=== PATIENT | male | born 1970 | race Caucasian/White ===

== ENCOUNTER 2018-04-02 12:34 | Inpatient (IN) | payer SELFPAY ==
[~2018-04-02] VITALS: Ht 177.8 cm; Wt 88.0 kg
[2018-04-02 12:41] VITALS: Ht 177.8 cm; Wt 88.0 kg
[2018-04-02 13:49] LABS: PLATELET COUNT 138 x10^3mcL (130-400); RED CELL DISTRIBUTION WIDTH 17.6 % (11.5-14.5)
--- NOTE | 2018-04-02 13:51 | NUR ---
PT PRESENTED TO THE ED FOR ALCOHOL WITHDRAWAL. PT STATES HE HAS DECREASED HIS ALCOHOL INTAKE TO "A FEW SIPS EVERY 3 HOURS". PT STATES NAUSEA, VOMITING, AND HEADACHES X 5 DAYS AFTER DECREASING ALCOHOL INTAKE. PT STATES HIS LAST DRINK WAS "AN HOUR BEFORE I GOT HERE". PT STATES HE HAD THOUGHTS OF HURTING HIMSELF UPON ARRIVAL BUT DENIED HAVING A PLAN. PT CURRENTLY DENIES ANY THOUGHTS OF HURTING HIMSELF, HALLUCINATIONS, OR DELUSIONS. PT IS A&OX4, SPEAKING FULL CLEAR SENTENCES. BREATHING IS EVEN AND UNLABORED. PT IN NAD. CM AND OXYGEN MONITOR IN PLACE. DOOR LEFT OPEN TO VISUALIZE PATIENT. SAFETY MEASURES IN PLACE. BED IN LOWEST POSITION. AT BEDSIDE. WILL CONTINUE TO MONITOR.
[2018-04-02 13:56] LABS: ATYPICAL LYMPH 0 %; BAND NEUTROPHIL 0 % (0-10); SEGMENTED NEUTROPHILS 90 % (37-75)
[2018-04-02 13:57] LABS: BASOPHIL 0 % (0-2); MONOCYTE 2 % (0-7); rbc morphology (normal/abnorm) ABNORMAL (NORMAL)
[2018-04-02 14:15] LABS: ALT/SGPT 107 U/L (16-63); AST/SGOT 222 U/L (15-37); BILIRUBIN TOTAL 1.76 mg/dL (0.20-1.00); CALCIUM 7.9 mg/dL (8.5-10.1); CARBON DIOXIDE 26.1 mmol/L (21-32); CHLORIDE SERUM 99 mmol/L (98-107); CREATININE SERUM 0.7 mg/dL (0.7-1.3); GFR1 > 60 mL/min; GLUCOSE SERUM 136 mg/dL (74-106); SODIUM SERUM 136 mmol/L (136-145)
--- NOTE | 2018-04-02 14:30 | NUR ---
LUNCH TRAY PROVIDED TO PT, FOOD TRAY FINISHED.
[2018-04-02 14:34] LABS: ALBUMIN 2.9 g/dL (3.4-5.0)
[2018-04-02 14:35] LABS: POTASSIUM SERUM 3.8 mmol/L (3.5-5.1)
--- NOTE | 2018-04-02 15:38 | NUR ---
WHEN TRANSFERRING PT TO ROOM 4, A POCKET KNIFE WAS REMOVED FROM PT AND GIVEN TO TO SAFE KEEP PT'S BELONGINGS.
--- NOTE | 2018-04-02 15:40 | NUR ---
PT EXPRESS THOUGHT SO HURTING SELF AND DENIES A PLAN TO HURT SELF. TELEPSYCH IN PLACE AT BEDSIDE.
--- NOTE | 2018-04-02 15:40 | NUR ---
PTS POCKET KNIFE WAS GIVEN TO FOR HOLD. WAS INSTRUCTED NOT TO RETURN ITEM TO PATIENT. WITNESSED BY DAGOBERTO VIEIRA. VERBALIZED UNDERSTANDING SHE IS NOT TO RETURN ITEM TO PT WHILE IN THE ED.
--- NOTE | 2018-04-02 15:40 | NUR ---
WITH DR. TORREZ'S PERMISSION PT IS ALLOWED TO GO OUTSIDE TO SMOKE WITH .
[2018-04-02 15:43] LABS: ALKALINE PHOSPHATASE 983 U/L (46-116)
--- NOTE | 2018-04-02 15:45 | NUR ---
REPORT GIVEN TO KANWAL VIEIRA, ENDORSED ALL CARE.
--- NOTE | 2018-04-02 16:11 | NUR ---
PT AMBULATED TO RESTROOM, PROVIDED WITH SODA AND COFFEE.
--- NOTE | 2018-04-02 16:13 | NUR ---
PT STILL WAITING TELE/PSYCH CALL. AT BEDSIDE. SITTING IN VIEW OF THE NURSES STATION.
--- NOTE | 2018-04-02 16:28 | NUR ---
REPORT GIVEN TO DR. MERLOS FOR [facility]pto. PROVIDED PT'S STATUS, LAB HX AND VITAL SIGNS.
--- NOTE | 2018-04-02 16:29 | NUR ---
TELEPYSCH EVAL ONGOING AT BEDSIDE.
--- NOTE | 2018-04-02 17:03 | NUR ---
TELE/PSYCH COMPLETE. PT AMBULATING OUTSIDE FOR SMOKE, AND THEN AMBULATED TO THE RESTROOM.
--- NOTE | 2018-04-02 17:58 | NUR ---
KAVEH CALLED FOR NICODERM PATCH
--- NOTE | 2018-04-02 18:04 | NUR ---
PT FINISHED ENTIRE MEAL TRAY PROVIDED TO HIM.
--- NOTE | 2018-04-02 18:15 | NUR ---
PT LYING SEMI FOWLERS WATCHING TV. COOPERATIVE, IV INFUSING, PT HAS EQUAL AND UNLABORED CHEST RISE, NICOTINE PATCH IN PLACE. NO LONGER AT BEDSIDE. MEDICAL CLEARANCE BY MD MORENO.
--- NOTE | 2018-04-02 18:59 | NUR ---
PT AMBULATED TO RESTROOM WITH RN
--- NOTE | 2018-04-02 19:11 | NUR ---
PT OUTSIDE TO SMOKE WITH STAFF AT 1900
--- NOTE | 2018-04-02 19:19 | NUR ---
REPORT GIVEN TO FELIZ VIEIRA.
--- NOTE | 2018-04-02 19:23 | NUR ---
PT PROVIDED WITH A SANDWICH, PT BRACLET REMOVED AND PLACED IN BELONGINGS BAG IN RADIO ROOM.
--- NOTE | 2018-04-03 00:36 | NUR ---
PT IS RESTING IN BED
--- NOTE | 2018-04-03 06:30 | NUR ---
PT AMBULATED TO BATHROOM WITHOUT ASSISTANCE. PT WAS TAKEN OUTSIDE TO SMOKE.
--- NOTE | 2018-04-03 07:04 | NUR ---
RECEIVED REPORT FROM ISHA PIPER
--- NOTE | 2018-04-03 07:05 | NUR ---
PT RESTING AT BEDSIDE IN NAD
--- NOTE | 2018-04-03 07:16 | NUR ---
PATIENT BREATHING E/U, BILATERAL CHEST RISE. STS THAT HE IS NOT HAVING ANY SI. PATIENT HAS BEEN COOPERATIVE AND DOES FOLLOW ALL INSTRUCTIONS. STS THAT HE IS DEALING WITH ETOH WITHDRAWAL. HAS BEEN ABLE TO AMBULATE WITH STEADY GAIT. LIGHTS DIMMED, TV ON TO PROMOTE PATIENT COMFORT. PATIENT STS SATISFACTION AND STS HE IS COMFORTABLE. CURTAINS LEFT WIDE OPEN, PATIENT CAN BE SEEN FROM NURSES AT STATION.
[2018-04-03] MEDS ORDERED: ZOLOFT25 MG (07:45)
--- NOTE | 2018-04-03 08:01 | NUR ---
PT RESTING AT BEDSIDE IN NAD. BREATHING E/U, BILATERAL CHEST RISE. BED AT LOWEST POSITION. CURTAINS LEFT WIDE OPEN AND PATIENT CAN BE VISUALIZED BY NURSES AT STATION.
--- NOTE | 2018-04-03 08:10 | NUR ---
PT WAS ABLE TO AMBULATE TO RESTROOM, STEADY GAIT NOTED. PATIENT STS HE IS NOT DIZZY. ABLE TO AMBULATE BACK TO ROOM INDEPENDENTLY.
--- NOTE | 2018-04-03 08:16 | NUR ---
LAB AT BEDSIDE
[2018-04-03 09:58] LABS: CALCIUM 7.9 mg/dL (8.5-10.1); CHLORIDE SERUM 92 mmol/L (98-107); CREATININE SERUM 0.7 mg/dL (0.7-1.3); GFR1 > 60 mL/min; GLUCOSE SERUM 143 mg/dL (74-106); POTASSIUM SERUM 3.4 mmol/L (3.5-5.1); SODIUM SERUM 130 mmol/L (136-145)
[2018-04-03 10:06] LABS: PLATELET COUNT 134 x10^3mcL (130-400)
[2018-04-03 10:09] LABS: RED CELL DISTRIBUTION WIDTH 17.6 % (11.5-14.5)
[2018-04-03 10:19] LABS: AMYLASE 38 U/L (25-115); LIPASE 562 IU/L (73-393); MAGNESIUM 1.2 mg/dL (1.8-2.4); PHOSPHOROUS 2.6 mg/dL (2.5-4.9)
--- NOTE | 2018-04-03 10:22 | NUR ---
REPORT OFF TO ISHA CARMONA
--- NOTE | 2018-04-03 11:07 | NUR ---
AT 1030 - RECEIVED PATIENT FROM ER NURSE. SETTLED IN ROOM, ORIENTED TO SURROUNDINGS AND PLACED ON CARDIAC MONITORING TELE # 20. ADMITTED WITH ALCOHOL WITHDRAWAL, 5150. PATIENT IS AWAKE, ALERT AND ORIENTED X 4. SAYS THAT HE FEELS ANXIOUS AND "JITTERY". HISTORY OBTAINED FROM PATIENT. AND SON ARE ALSO AT BEDSIDE. IV INFUSING NS AT 100ML/HR. MONITOR SHOWING SINUS TACH; RATE 109. BP 150/105. ADMISSION ASSESSMENT DONE. AT 1050 - MEDICATED WITH IV ATIVAN 2 MG PER EMAR. SEEN BY DR WILKERSON, DR ARMENDARIZ, MEDICAL TEAM DOCTORS. NEW NICODERM PATCH OF 21 MG APPLIED TO TY. 1:1 SITTER IN ROOM WITH PATIENT.
[2018-04-03 11:16] VITALS: BP 150/105
[2018-04-03 11:33] LABS: CHOLESTEROL 380 mg/dL (<200); CHOLESTEROL/HDL RATIO 31.7; HDL CHOLESTEROL 12 mg/dL (40-60); TRIGLYCERIDES 1304 mg/dL (<150)
--- NOTE | 2018-04-03 11:49 | NUR ---
PATIENT APPEARS MORE RELAXED. NOW MEDICATED WITH ZOFRAN FOR NAUSEA.
[2018-04-03 13:30] VITALS: BP 124/80
[2018-04-03 14:05] LABS: BAND NEUTROPHIL 0 % (0-10); BASOPHIL 0 % (0-2); MONOCYTE 2 % (0-7); SEGMENTED NEUTROPHILS 76 % (37-75); rbc morphology (normal/abnorm) ABNORMAL (NORMAL); target cell (codocyte) 1+
[2018-04-03 14:07] LABS: PLATELET MORPHOLOGY PLATELETS NORMAL
--- NOTE | 2018-04-03 15:36 | NUR ---
AT 1315 - COMMENCED INFUSION OF BANANA BAG AT A RATE OF 250 ML/HR. AT 1430 - COLLECTED SWAB FOR LENARD NARES FOR MRSA. TAKEN TO LAB. AT 1530 -PATIENT SITTING IN CHAIR. IN ROOM. URINE HAS BEEN COLLECTED FOR UA AND UDS.
[2018-04-03 16:00] LABS: microscopic required? NO
[2018-04-03 16:19] LABS: urine erythrocyte NEGATIVE (NEGATIVE)
[2018-04-03 16:28] LABS: AMPHETAMINE QUAL UR NONE DETECTED (See below)
--- NOTE | 2018-04-03 16:48 | NUR ---
No update from contacted facilties at this time. no beds at following hospitals: [facility] Polly Ortega will endorse to assembler 1st shift to continue looking for placement.
--- NOTE | 2018-04-03 18:06 | NUR ---
AT 1635 - MEDICATED WITH IV ATIVAN PER EMAR FOR AGGITATION AND RESTLESSNESS. ALSO GIVEN 40 ME KCL FOR K+ OF 3.4. PATIENT HAS BEEN ORDERED ABDOMINAL ULTRASOUND. SPOKE WITH DR ARMENDARIZ. IT IS OK FOR TEST TO BE DONE IN EARLY AM SO PATIENT CAN EAT DINNER. SPOKE WITH RADIOLOGY - ULTRASOUND. KEEP PATIENT NPO AFTER 2200 TONIGHT AND THEY WILL DO ULTRASOUND AT 0600 TOMORROW MORNING. AT 1745 - PATIENT HAS BEEN SITTING INH CHAIR. NOW BACK IN BED. APPEARS MORE RELAXED AT THIS TIME.
[2018-04-03 18:08] VITALS: BP 98/59
--- NOTE | 2018-04-03 19:25 | NUR ---
NEW ARMBAND APPLIED.
--- NOTE | 2018-04-03 19:30 | NUR ---
AWAKE, ALERT AND ORIENTED X 4. PATIENT SITTING IN CHAIR. HAS PERIODS OF ANXIETY. IV INFUSING NS AT 100 ML/HR. MONITOR SHOWING SINUS TACH; RATE 110. AMBULATES TO BATHROOM FOR TOILET NEEDS. TOLERATING REGULAR DIET. AT BEDSIDE AND SUPPORTIVE. CARE ENDORSED TO NIGHT NURSE.
--- NOTE | 2018-04-03 20:22 | NUR ---
SHIFT REASSESSMENT DONE.PATIENT 1:1 SITTER .SUICIDAL IDEATION PER RECORD.MURPHY AWARE.BREATHING EASY.BRP,AMULATORY.NS AT 100 CC/ HOUR.IV SITE SECURED.TEL 20 ST.VOIDING PER URINAL.ALREADY GIVEN ATIVAN,RESTLESS.WILL GIVE LIBRIUM AT 2200.
--- NOTE | 2018-04-03 21:00 | NUR ---
PATIENT WAS GIVEN ATIVAN,IVP EARLIER.
--- NOTE | 2018-04-03 22:28 | NUR ---
LIBRIUM Q 8 HOURS RTC.SWALLOWS WELL.
--- NOTE | 2018-04-03 22:29 | NUR ---
WAS ASKING ANOTHER NURSE FOR ATIVAN,WAS JUST GIVEN ATIVAN.
--- NOTE | 2018-04-03 22:35 | NUR ---
PATIENT UP AND ABOUT RESTROOM,MOVING SO MUCH.NOW IV IS LEAKING/BLEEDING.WILL PUT A NEW ONE.
--- NOTE | 2018-04-03 23:16 | NUR ---
PATIENT UP IN RESTROOM,MORE BLEEDING FROM IV SITE.WILL RESTART AGAIN.THEN WE GIVE ATIVAN
--- NOTE | 2018-04-04 00:43 | NUR ---
ATIVAN GIVEN IVP JUST NOW.IV CONNECTED.IV SITE RFA 20 GUAGE INTACT AND SECURED.
--- NOTE | 2018-04-04 02:05 | NUR ---
PATIENT GOT UP,CANNOT CONTROL BY SITTER,WET HIMSELF,KEEP CLEAN AND DRY.NEW UNDERWEAR GIVEN,TELE PUT BACK AGAIN,MOVING TOO MUCH,SLEEPING ON HIS STOMACH AND TELE ALWAYS OFF,BUT WILL NOT LISTEN TO STAY ON HIS BACK.URINAL AT BEDSIDE,REMINDED HE DO NOT HAVE TO GET UP TO RESTROOM,JUST USE URINAL,SITTER WILL ASSIST.
--- NOTE | 2018-04-04 02:21 | NUR ---
Still no bed vacancies at the following psychiatric facilities. [facility], spoke with Iwona. [facility], spoke with Cordelia. [facility], spoke with Trista. [facility], spoke with Radha. [facility], spoke with Ghada. [facility], spoke with Kanika. Will continue to look for bed vacancies and will endorse to AM shift.
--- NOTE | 2018-04-04 02:31 | NUR ---
BEING WATCH FOR WITHDRAWAL/SAFETY.
--- NOTE | 2018-04-04 03:20 | NUR ---
JUST GAVE ATIVAN IVP,PATIENT VERY RESTLESS,GOT UP IN THE HALLWAY,SITTER CANNOT CONTROL HIM,MADE COMFORTABLE IN BED,ASSIST TO URINAL,USED AT BEDSIDE.
--- NOTE | 2018-04-04 03:39 | NUR ---
PATIENT IS UP IN HALLWAY AGAIN,EVEN I JUST GAVE ATIVAN.IV DISCONNECTED FOR NOW.
--- NOTE | 2018-04-04 04:40 | NUR ---
QUIET AT THIS TIME,SLEEPING.
[2018-04-04 04:57] VITALS: BP 113/74
--- NOTE | 2018-04-04 06:18 | NUR ---
AT BEDSIDE,VERY SUPPORTIVE OF CARE.MADE AWARE OF WHAT PATIENT DID ALL NIGHT.I AND O MEASURED.WILL ENDORSE TO NEXT SHIFT.
[2018-04-04 06:44] LABS: BILIRUBIN DIRECT 1.38 mg/dL (0.0-0.2); CARBON DIOXIDE 27.8 mmol/L (21-32); CHLORIDE SERUM 99 mmol/L (98-107); CREATININE SERUM 0.6 mg/dL (0.7-1.3); GFR1 > 60 mL/min; GLUCOSE SERUM 125 mg/dL (74-106); POTASSIUM SERUM 3.5 mmol/L (3.5-5.1); SODIUM SERUM 135 mmol/L (136-145)
[2018-04-04 07:10] LABS: PLATELET COUNT 122 x10^3mcL (130-400); RED CELL DISTRIBUTION WIDTH 18.6 % (11.5-14.5)
--- NOTE | 2018-04-04 07:15 | NUR ---
RECEIVED PATIENT FROM DECATIZER NURSE. PATIENT IS AWAKE,ALERT AND ORIENTED. SEIZURE PRECAUTIONS IN PLACE. TELE#20, SR, HR 82, DENIES CHEST PAIN AND PALPITATIONS. ON ROOM AIR, BREATHING EVEN AND UNLABORED. ULTRASOUND AT BEDSIDE TO COMPLETE ABD US. IV NOTED TO RFA, IVF INFUSING WELL ORDERED, NO S/S REDNESS OR EDEMA. SITTER AT BEDSIDE FOR SAFETY, PATIENT ADMITTED FOR 5150 SI. FAMILY AT BEDSIDE. WILL CONTINUE TO MONITOR.
[2018-04-04 08:55] VITALS: BP 127/89
--- NOTE | 2018-04-04 09:02 | NUR ---
DR ARMENDARIZ NOTIFIED OF PATIENTS LIPID PANEL RESULTS. WILL FOLLOW UP.
--- NOTE | 2018-04-04 09:03 | NUR ---
DR ARMENDARIZ NOTIFIED VIA [employer] OF PATIENTS C/O OF NICODERM PATCH 21MG TOO STRONG AND CAUSING NAUSEA. PATIENS REQUESTING 7MG PATCH. WILL FOLLOW UP.
--- NOTE | 2018-04-04 11:13 | NUR ---
DR ARMENDARIZ PAGED REGARDING NICOTINE PATCH. PENDING CALL BACK.
[2018-04-04 11:20] LABS: BAND NEUTROPHIL 0 % (0-10); BASOPHIL 0 % (0-2); MONOCYTE 2 % (0-7); SEGMENTED NEUTROPHILS 78 % (37-75)
[2018-04-04 11:21] LABS: rbc morphology (normal/abnorm) ABNORMAL (NORMAL)
[2018-04-04 11:22] LABS: target cell (codocyte) 1+
[2018-04-04 12:29] VITALS: BP 124/89
--- NOTE | 2018-04-04 14:06 | NUR ---
RESTLESS,AGITATED MEDICATED WITH ATIVAN IVP PER ORDER.
--- NOTE | 2018-04-04 14:59 | NUR ---
NO update from contacted hospitals today No beds at the following facilities: [facility] will continue to search for placement and endorse to mini shifter to continue looking as well
[2018-04-04 15:12] VITALS: BP 124/89
[2018-04-04 18:02] VITALS: BP 123/90
--- NOTE | 2018-04-04 19:03 | NUR ---
PATIENT RESTING IN BED AT THIS TIME WITH BOTH EYES CLOSED, AROUSABLE. SITTER AT BEDSIDE FOR SAFETY. PATIENT WAITING FOR PSYCH CONSULT WITH DR DOSHI. PATIENT CARE ENDORSED TO MANAGER CULINARY NURSE.
--- NOTE | 2018-04-04 19:30 | NUR ---
REC'D REPORT FROM KEITH RN TO ASSUME CARE. PT SEEN SITTING UP IN CHAIR IN ROOM, SEEN LYING IN BED. PT IS A/O X4, SPEECH CLEAR AND APPROPRIATE. PERRLA NOTED. ABLE TO MAKE NEEDS KNOWN. NO ACUTE DISTRESS NOTED. PT ON 5150 HOLD WITH SITTER AT BEDSIDE. PT ASKING FOR ATIVAN IVP AT THIS TIME, WILL MEDICATE PER MD ORDER. DENIES ANY SOB, RESPS E/U ON ROOM AIR. LUNG SOUNDS CTA. FARMWORKER VEGETABLE IN PLACE SHOWING ST. ABD SOFT, NONTENDER TO TOUCH. BOWEL SOUNDS ACTIVE. SKIN WARM DRY TO TOUCH. IV TO RFA INTACT AND PATENT, NS INFUSING @ 100ML/HR. NO S/SX OF INFILTRATION NOTED. VOIDS FREELY WITH BRP. ABLE TO AMBULATE WITH NO LIMITATIONS. SEIZURE PRECAUTIONS IN PLACE FOR ALCOHOL WITHDRAWAL. PT DENIES ANY SUICIDAL IDEATION. ALL NEEDS MET AT THIS TIME. WILL CONTINUE TO MONITOR.
[2018-04-04 20:04] VITALS: BP 130/92
--- NOTE | 2018-04-04 20:55 | NUR ---
DR DOSHI SEEN AT BEDSIDE.
--- NOTE | 2018-04-04 21:12 | NUR ---
DR DOSHI SEEN AND EXAMINED PT, DR DOSHI STATES PT IS CLEARED AND DOES NOT NEED [address] ZALDIVAR AND MADE AWARE.
--- NOTE | 2018-04-04 21:40 | NUR ---
PTS YELLING AT PT UPSET THAT PSYCH DIDN'T TALK TO HER. EXPLAINED PT WAS SLEEPING IN BED SNORING WHEN PSYCH WALKED IN ROOM. EXPLAINED TO DR DOSHI EXAMINED PT AND PT WAS CLEARED FROM 5150. PT STILL UPSET CURSING AND YELLING AT PT STATING THAT IT'S HIS FAULT HER LIFE IS FED UP AND THAT SHE HASN'T SLEPT FOR 25 YEARS BECAUSE OF PT. CHARGE NURSE MADE AWARE AND SUGGESTED TO TELL PTS TO GO HOME TO SLEEP AND COME BACK IN AM TO LEAD MILITARY ANALYST PT. PTS TOLD TO GO HOME AND SLEEP, PTS STARTED TO YELL AND STATED I DONT CARE ANYMORE. PTS STARTED YELLING AT PT AGAIN STATING I DIDN'T PUT THE ALCOHOL TO YOUR FELLE MOUTH. DR ZALDIVAR CALLED AND MADE AWARE.
--- NOTE | 2018-04-04 21:46 | NUR ---
DR ZALDIVAR AT BEDSIDE TO ASSESS PT, UPDATED ON STATUS, DR ZALDIVAR STATES PT IS MEDICALLY CLEARED. CHARGE NURSE AT BEDSIDE. PTS STATES IF I TAKE HIM HOME AND I FISADORA IM GONNA FRITZ THE F OUT OF YOU. SECURITY CALLED AT THIS TIME.
--- NOTE | 2018-04-04 22:00 | NUR ---
SECURITY ESCORTED PTS TO LOBBY TO WAIT FOR PT TO BE DISCHARGED TO TAKE HOME.
--- NOTE | 2018-04-04 22:15 | NUR ---
DISCHARGE INSTRUCTIONS PROVIDED. INSTRUCTED TO F/U WITH PCP CRISTINA AND TO ABSTAIN FROM ALCOHOL. INSTRUCTED TO COME BACK TO ER FOR ANY WORSENING SYMPTOMS. VITAL SIGNS UPON DISCHARGE 133/90, HR 105, TEMP 99.0, O2 SAT 98% ON ROOM. NO SOB NOTED, RESPS E/U. DENIES ANY PAIN OR DISCOMFORT. NO ALOC NOTED. SKIN INTACT. PT VERBALIZED UNDERSTANDING OF ALL DISCHARGE INSTRUCTIONS. ALL QUESTIONS AND CONCERNS ADDRESSED. PT WHEELCHAIRED OUT TO LOBBY TO SAFELY. NO INCIDENTS OCCURED.
== END 2018-04-04 22:37 | disposition home or self-care (01) | DRG 92 ==
LOC: ED 12:34 → DU 04-03 07:35
PROVIDERS: Emergency Medicine; ADMIT Internal Medicine
DX: G92 Toxic encephalopathy (principal); E87.1 Hypo-osmolality and hyponatremia; F10.10 Alcohol abuse, uncomplicated; Y90.0 Blood alcohol level of less than 20 mg/100 ml; F17.200 Nicotine dependence, unspecified, uncomplicated; E87.6 Hypokalemia; E83.42 Hypomagnesemia; E83.51 Hypocalcemia; E78.5 Hyperlipidemia, unspecified; D64.9 Anemia, unspecified; F32.9 Major depressive disorder, single episode, unspecified; R74.0 Nonspecific elevation of levels of transaminase and lactic acid dehydrogenase [LDH]
CPT/HCPCS: 83880; G0480; J2060; J2405; J3490; J7030; Q0092; Q0162

== ENCOUNTER 2018-09-07 11:15 | Emergency (ER) | payer SELFPAY ==
[~2018-09-07] VITALS: Ht 175.3 cm; Wt 86.2 kg
[~2018-09-07 11:15] MED LIST: ZOLOFT25 MG
[2018-09-07 11:21] VITALS: Ht 175.3 cm; Wt 86.2 kg
[2018-09-07 12:31] VITALS: BP 168/78
== END 2018-09-07 12:31 | disposition home or self-care (01) ==
LOC: ED 11:15
DX: F41.9 Anxiety disorder, unspecified (principal); R07.89 Other chest pain; F10.129 Alcohol abuse with intoxication, unspecified; F17.210 Nicotine dependence, cigarettes, uncomplicated
CPT/HCPCS: 99406; Q0092

== ENCOUNTER 2018-10-20 01:28 | Emergency (ER) | payer OTHER ==
[~2018-10-20] VITALS: Ht 175.3 cm; Wt 81.6 kg
[2018-10-20 01:35] VITALS: Ht 175.3 cm; Wt 81.6 kg
[2018-10-20 02:47] VITALS: BP 137/88
== END 2018-10-20 02:47 | disposition other institution (70) ==
LOC: ED 01:28
DX: Z02.89 Encounter for other administrative examinations (principal)

== ENCOUNTER 2018-11-14 21:22 | Emergency (ER) | payer OTHER ==
[~2018-11-14] VITALS: Ht 175.3 cm; Wt 89.4 kg
[2018-11-14 21:24] VITALS: BP 130/90; Ht 175.3 cm; Wt 89.4 kg
== END 2018-11-14 22:02 | disposition other institution (70) ==
LOC: ED 21:22
DX: Z02.89 Encounter for other administrative examinations (principal)

== ENCOUNTER 2018-11-17 00:31 | Inpatient (IN) | payer MEDICAID ==
[~2018-11-17] VITALS: Ht 175.3 cm; Wt 89.4 kg
--- NOTE | 2018-11-17 00:35 | NUR ---
PT BIB [facility]. PT IS AWAKE AND ALERT AT THIS TIME. PT REPORTS HE WAS SLEEPING ON THE COUCH AND WOKE UP TO EMS. PER MEDIC REPORT, PT FAMILY ACTIVATED 911 AFTER THE SON WITNESSED STIFFENING OF THE ARMS AND OTHER ACTIVITY DESCRIBED "CONVULSION" LIKE. PT IS ALERT AND ORIENTED BUT DOES NOT REMEMBER THE EVENT DESCRIBED BY FAMILY. PUPILS ARE VINAY. SMEAR OF BLOOD NOTED ON THE LEFT CHEEK OUTSIDE THE CORNER OF THE MOUTH, PT CONNECTED TO FULL MONITORS ON ED [place] AND EKG INITIATED BY EMT TAMMY. PT IS NOTED TO BE IN SINUS TACH ON THE MONITOR. PT REPORTS NO NX OF SEIZURES AND DEMONSTRATES NO TREMORS AT THIS TIME. PT EYES ARE NOTED TO BE BLOOD SHOT IN APPEARANCE. PT AWAITING MSE IN ED BED 9. SUCTION AND O2 IN FLAKO. IV ACCESS ESTABLISHED EN ROUTE. SEIZURE PADS TO BE APPLIED.
[2018-11-17 00:41] VITALS: Ht 175.3 cm; Wt 89.4 kg
--- NOTE | 2018-11-17 00:45 | NUR ---
AT BEDSIDE AT THIS TIME.
--- NOTE | 2018-11-17 01:05 | NUR ---
PT MEDICATED PER ORDER. PT VERBALIZED UNDERSTANDING OF MEDICATION TEACHING. SEE EMAR FOR DETAILS.
[2018-11-17 01:27] LABS: PLATELET COUNT 188 x10^3mcL (130-400)
[2018-11-17 01:33] LABS: RED CELL DISTRIBUTION WIDTH 15.6 % (11.5-14.5)
[2018-11-17 01:43] LABS: CALCIUM 8.3 mg/dL (8.5-10.1); CARBON DIOXIDE 24.1 mmol/L (21-32); CHLORIDE SERUM 95 mmol/L (98-107); CREATININE SERUM 0.5 mg/dL (0.7-1.3); GFR1 > 60 mL/min; GLUCOSE SERUM 160 mg/dL (74-106); POTASSIUM SERUM 3.1 mmol/L (3.5-5.1); SODIUM SERUM 133 mmol/L (136-145)
[2018-11-17 01:48] LABS: ALBUMIN 3.5 g/dL (3.4-5.0); ALKALINE PHOSPHATASE 132 U/L (46-116); ALT/SGPT 84 U/L (16-63); AST/SGOT 76 U/L (15-37); BILIRUBIN TOTAL 0.96 mg/dL (0.20-1.00); TOTAL PROTEIN, SERUM 7.4 g/dL (6.4-8.2)
[2018-11-17 02:05] LABS: BAND NEUTROPHIL 0 % (0-10); BASOPHIL 0 % (0-2); MONOCYTE 6 % (0-7); SEGMENTED NEUTROPHILS 81 % (37-75)
[2018-11-17 02:06] LABS: PLATELET MORPHOLOGY PLATELETS NORMAL; rbc morphology (normal/abnorm) NORMAL (NORMAL)
--- NOTE | 2018-11-17 02:22 | NUR ---
PT MEDICATED PER ORDER. PT VERBALIZED UNDERSTANDING OF MEDICATION TEACHING. SEE EMAR FOR DETAILS.
--- NOTE | 2018-11-17 02:39 | NUR ---
PT LAYING ON GURNEY IN POSITION OF COMFORT. NO S/S OF DISTRESS. RESP E/U. AT BEDSIDE. COMFORT MEASURES IMPLEMENTED. WILL CONTINUE TO MONITOR.
--- NOTE | 2018-11-17 02:48 | NUR ---
REPORT GIVEN TO ISHA MEYER TO ASSUME CARE OF PT.
--- NOTE | 2018-11-17 03:05 | NUR ---
RECEIVED PT FROM ER ACCOMPANIED BY ER NURSE EMILY AND EMT TAMMY. PT AMBULATED WITH NURSE TO BED 242 B WITH UNSTEADY GAIT NOTED, ASSISTED PT TO BED WITH ASSISTANCE TO BED. PT ATTACHED TO TELE MONITOR #16. PT PLACED IN BED WITH NO COMPLICATIONS. RECEIVED PT AOX4 ABLE TO RESPOND TO COMMANDS, MAKE NEEDS KNOWN. GCS=15. PUPILS 4MM BRISK RESPONSE TO LIGHT B/L, PERRLA. SPEECH CLEAR. NO FACIAL DROOP.TRACHEA MIDLINE. BILATERAL EYES HAVE REDNESS, NO DRAINAGE NOTED, DRY GREENISH CRUST NOTED NEAR EYES. LUNG SOUNDS CTAB, CHEST RISE/FALL SYMMETRIC, E/U BREATHING, NO ACUTE RESP DISTRESS, DENIES SOB. ON ROOM AIR. NO COUGH.S1/S2 SOUNDS. PT DENIES CHEST PAIN, NO S/S OF CHEST PAIN.SKIN COLOR CONSISTENT WITH ETHNICITY, CAP REFILL <3 SEC, PULSES MODERATE X4 EXTREMITIES. NO EDEMA.GEN WEAKNESS REPORTED. NO CONTRACTURES/DEFORMITIES, PT ABLE TO TURN/REPOSITION SELF Q2H. NO JOINT SWELLING/TENDERNESS. GAIT UNSTEADY. ACTIVE BOWEL SOUNDS X4 QUADRANTS, ABD SOFT/ROUND. NO BM AT THIS TIME. REPORTS BM YESTERDAY BROWN SOFT.PT REPORTS BEING ABLE TO VOID FREELY. NO PENILE EDEMA OR DISCHARGE NOTED.PT CALM/COOPERATIVE WITH CARE AT THIS TIME. ETOH ABUSE, WITHDRAWAL AT THIS TIME, LAST DRINK WAS REPORTED 3 DAYS AGO. NO S/S OF N/V. BED AT LOWEST SETTING, CALL LIGHT WITHIN REACH, HOB ELEVATED 30 DEGREES. TEACHING PROVIDED. WILL CONT TO MONITOR.
[2018-11-17 03:13] VITALS: BP 117/75
[2018-11-17 03:13] LABS: UA SPECIFIC GRAVITY 1.015 (1.005-1.035); microscopic required? YES; urine erythrocyte 1+ (NEGATIVE)
--- NOTE | 2018-11-17 03:16 | NUR ---
PT TRANSFERRED TO TELE FLOOR ACCOMPANIED BY NURSE AND EMT. NO S/S OF DISTRESS. RESP E/U. PT CONNECTED TO MONITOR DURING TRANSFER. RN AT BEDSIDE TO ASSUME CARE OF PT. RN AWARE OF MEDICATION STILL INFUSING.
[2018-11-17 03:42] VITALS: BP 117/75
--- NOTE | 2018-11-17 03:52 | NUR ---
PT REPORTS BEING AGITATED/RESTLESS AT THIS TIME. PT MEDICATED WITH ATIVAN IVP PER EMAR.
--- NOTE | 2018-11-17 05:35 | NUR ---
PT SLEEPING BUT EASILY AROUSABLE TO VERBAL STIMULI, IN NO ACUTE DSITRESS, DENIES SOB, DENIES PAIN AT THIS TIME. SEIZURE PREACUATIONS INTACT WITH SEIZURE PADS TO RAILS. RIGHT WRIST IV PORT PATENT, NO S/S OF INFILTRATION, DRESSING CDI, INFUSING NS @ 100 ML/HR. BED AT LOWEST SETTING, CALL LIGHT WITHIN [facility], HOB ELEVATED 30 DEGREES, WILL ENDORSE CARE TO ONCOMING RN.
--- NOTE | 2018-11-17 05:51 | NUR ---
FOUND PT IV TO RW OUT AND BLOOD ON PT'S SHEETS. PT REPORTS "I TURNED AROUND AND IT CAME OUT". PT IV D/C'D WITH ANGIOCATH INTACT. NEW IV INITIATED TO RFA 18 G, PORT PATENT, FLUSHED WITH 10 ML OF NS, NO S/S OF INFILTRATION, DRESSING CDI, ATTACHED TO NORMAL SALINE GTT @ 100 ML/HR. NEW SHEETS PROVIDED TO PATIENT.
[2018-11-17 07:04] LABS: BASOPHIL % 0.2 % (0-2); PLATELET COUNT 169 x10^3mcL (130-400)
[2018-11-17 07:20] LABS: RED CELL DISTRIBUTION WIDTH 16.2 % (11.5-14.5)
--- NOTE | 2018-11-17 07:25 | NUR ---
GAVE REPORT TO ISHA RICHTER. UPDATES GIVEN, QUESTIONS ANSWERED, ENODRSED CARE.
--- NOTE | 2018-11-17 07:30 | NUR ---
RECEIVED PT'S REPORT FROM LEAVING NURSE. PT REST ON BED, EASILY AROUSED VIA VERBAL STIMULI. SZ PRECAUTION IN PLACE. PT BREATHING ON RA, EVEN, UNLABORED. PT IS NPO AT THIS TIME. IV SITE PATENT, INTACT, IVF NS INFUSING AT 100ML/HR.
[2018-11-17 07:46] LABS: AMPHETAMINE QUAL UR NONE DETECTED (See below)
[2018-11-17 07:50] LABS: CALCIUM 8.4 mg/dL (8.5-10.1); CARBON DIOXIDE 22.2 mmol/L (21-32); CHLORIDE SERUM 99 mmol/L (98-107); CREATININE SERUM 0.5 mg/dL (0.7-1.3); GFR1 > 60 mL/min; GLUCOSE SERUM 78 mg/dL (74-106); MAGNESIUM 1.9 mg/dL (1.8-2.4); PHOSPHOROUS 3.3 mg/dL (2.5-4.9); POTASSIUM SERUM 3.5 mmol/L (3.5-5.1); SODIUM SERUM 134 mmol/L (136-145)
[2018-11-17 08:38] VITALS: BP 127/56
--- NOTE | 2018-11-17 10:41 | NUR ---
PT REPORTED GETTING ANXIOUS, ATIVAN GIVEN PER PRN ORDER.
--- NOTE | 2018-11-17 13:20 | NUR ---
PT'S AT BEDSIDE. PT COMPLAIN OF ANXIETY AND PAIN ON RIBS 2/2 FELL. ATIVAN AND NORCO GIVEN PER PRN ORDER.
[2018-11-17 16:43] VITALS: BP 110/78
--- NOTE | 2018-11-17 16:50 | NUR ---
Discount pharmacy card and list to low cost medical clinics given to patient by Latesha.
--- NOTE | 2018-11-17 19:39 | NUR ---
PT'S RESTING ON BED AFTER DINNED, REMAINING CALM AND COOPERATE WITH CARE. ENDORSED PT'S CARE TO RECEIVING NURSE.
[2018-11-17 21:04] VITALS: BP 102/70
--- NOTE | 2018-11-17 21:52 | NUR ---
PATIENT GIVEN NORCO PO PER EMAR FOR REPORT OF 7/10 PAIN TO HIS RIBS. NO SOB ON RA, CHEST EXPANSION SYMMETRICAL.
[2018-11-18 05:39] VITALS: BP 117/58
--- NOTE | 2018-11-18 06:27 | NUR ---
PT. AWAKE. RECEIVED AM MEDS. NO SEIZURE ACTIVITY NOTED THROUGHOUT NOGHT. NO TREMORS NOTED. IVF INFUSING WELL, SITE INTACT. WILL ENDORSE PT CARE TO INCOMING NURSE.
[2018-11-18 06:36] LABS: BASOPHIL % 0.3 % (0-2); PLATELET COUNT 169 x10^3mcL (130-400)
[2018-11-18 06:45] LABS: ALKALINE PHOSPHATASE 111 U/L (46-116); ALT/SGPT 65 U/L (16-63); AST/SGOT 54 U/L (15-37); BILIRUBIN TOTAL 0.7 mg/dL (0.20-1.00); CALCIUM 8.4 mg/dL (8.5-10.1); CHLORIDE SERUM 103 mmol/L (98-107); CREATININE SERUM 0.7 mg/dL (0.7-1.3); GFR1 > 60 mL/min; GLUCOSE SERUM 72 mg/dL (74-106); POTASSIUM SERUM 3.5 mmol/L (3.5-5.1); SODIUM SERUM 140 mmol/L (136-145); TOTAL PROTEIN, SERUM 6.7 g/dL (6.4-8.2)
[2018-11-18 06:55] LABS: ALBUMIN 3.1 g/dL (3.4-5.0)
[2018-11-18 07:02] LABS: RED CELL DISTRIBUTION WIDTH 16.4 % (11.5-14.5)
--- NOTE | 2018-11-18 07:30 | NUR ---
AAO X4.DENIES ANY PAIN/DISCOMFORT.LUNGS CLEAR.ON SINUS TACH ON THE MONITOR.ID=[id number].ABDOMEN SOFT NON-TENDER. SIDE RAILS PADDED FOR SEIZURE PRECAUTION.HX OF ETOH ABUSE.CALL LIGHT WITHIN REACH.INSTRUCTED TO CALL FOR ANY PAIN/DISCOMFORT.WILL CONTINUE TO MONITOR PT.
[2018-11-18 09:12] VITALS: BP 125/65
[2018-11-18 13:06] VITALS: BP 98/63
--- NOTE | 2018-11-18 15:09 | NUR ---
PT STARTED TO GET RESTLESS.GAVE ATIVAN 1 MG IVP ORDERED PRN FOR AGITATION/ALCOHOL WITHDRAWAL PROTOCOL.WILL CONTINUE TO MONITOR.
--- NOTE | 2018-11-18 15:56 | NUR ---
PT TOOK A SHOWER ORDERED.TOLORATED IT WELL.ALSO GOT AN ORDER TO D/C TELE. PT COMFORTABLY SITTING ON THE CHAIR.
[2018-11-18 16:53] VITALS: BP 98/63
--- NOTE | 2018-11-18 18:22 | NUR ---
NO SIGNIFICANT CHANGE NOTED.WILL ENDORSE TO NEXT SHIFT.
--- NOTE | 2018-11-18 19:41 | NUR ---
PT. AWAKE, ALERT, ORIENTED X4. DENIES HEADACHE OR DIZZINESS. SITTING UP AT BEDSIDE WITH SPOUSE AT BEDSIDE. BREATH SOUNDS CLEAR THROUGHOUT LUNG GUAN, RESP. EVEN, UNLABORED. NO SOB NOTED.PT. ON RA. NO EDEMA NOTED TO EXTREMITIES. ABD. SOFT AND ROUND, BOWEL SOUNDS ACTIVE. IVF INFUSING WELL, SITE WNL. CALL LIGHT WITHIN REACH.
--- NOTE | 2018-11-18 20:05 | NUR ---
PT. C/O ABD. PAIN 07/21. PRN NORCO GIVEN ORDERED. WILL MONITOR.
[2018-11-18 21:13] VITALS: BP 118/82
--- NOTE | 2018-11-19 00:20 | NUR ---
PT. AWAKE, SITTING UP IN CHAIR AT BEDSIDE. PT. REQUESTED PAIN MEDICATION EARLIER BUT MEDICATION WAS NOT DUE YET. PT. ASKED IF HE COULD BE AWAKENED IF HE FELL ASLEEP TO RECEIVE MEDICATION FOR PAIN. PT. MADE AWARE THAT HE WOULD NOT BE AWAKENED TO RECEIVE PAIN MEDICATION BUT COULD RECEIVE MEDICATION ONCE HE WOKE AND NEEDED PAIN MEDICATION. PT. STAYED UP IN HIS CHAIR AT BEDSIDE UNTIL MEDICATION WAS DUE. PT. ANXIOUS AND STATED THAT HE IS GOING THROUGH A LOT. STATING THAT HE NEEDED MORE MEDICATION. PRN ATIVAN WAS GIVEN ALSO. PT. WENT BACK TO BED AT THIS POINT, STATED THAT HE WILL TRY TO GET SOME SLEEP. CALL LIGHT PLACED WITHIN REACH. WILL MONITOR.
[2018-11-19 04:51] VITALS: BP 111/76
--- NOTE | 2018-11-19 07:15 | NUR ---
RECEIVED PT FROM FOUNTAIN SERVER NURSE. PT RESTING IN BED, AOX4, RESP E/U ON RA. CALM AT THIS TIME, DENIES HEADACHE, NAUSEA OR PAIN. IV TO RFA OUT AT THIS TIME, CATH INTACT, ACCESS SITE W/ NO BLEEDING, ERYTHEMA OR EDEMA. BED IN LOWEST POSITION AND CALL LIGHT WITHIN REACH. WILL CONTINUE TO MONITOR AND FOLLOW UP WITH IV INSERTION.
--- NOTE | 2018-11-19 07:29 | NUR ---
PT. DOZING. ROUNDS MADE FOR REPORT. IV CATH NOTED TO BE OUT. CATH INTACT. SITE NOT BLEEDING AT THIS TIME. INCOMING URSE MADE AWARE. PT. CARE ENDOSRE.
[2018-11-19 08:49] VITALS: BP 101/66
--- NOTE | 2018-11-19 12:31 | NUR ---
PT SITTING UPRIGHT IN BED, AXO4, RESP E/U ON RA. DENIES HEADACHE OR NAUSEA, STATED HE FELT ANXIOUS AND WAS REQUESTING FOR PRN ATIVAN. INFORMED PT IT IS CLOSE FOR SCHEDULED TIME FOR LIBRIUM AND IF HE WOULD BE ABLE TO WAIT FOR MEDICATION. PT CALM AND COMPLIANT W/ INSTRUCTIONS. BED IN LOWEST POSITION AND CALL LIGHT WITHIN REACH. AT BEDSIDE. WILL CONTINUE TO MONITOR.
[2018-11-19] MEDS ORDERED: NIC21 TD (14:12)
[2018-11-19] MEDS ORDERED: LIB25 PO (14:13)
[2018-11-19] MEDS ORDERED: FOL1 PO (14:14)
[2018-11-19] MEDS ORDERED: THERA TABLET400 MCG PO (14:14)
[2018-11-19] MEDS ORDERED: THI100 PO (14:14)
[2018-11-19 14:28] VITALS: BP 101/66
--- NOTE | 2018-11-19 14:53 | NUR ---
DISCHARGE DONE. REVIEWED VISIT SUMMARY, EDUCATIONAL PACKET, FOLLOW UP INSTRUCTIONS AND NEW RX MEDS W/ PT. PT AOX4, RESP E/U ON RA, VS STABLE, DENIES PAIN. IV TO LFA REMOVED, CATH INTACT, GAUZE DRESSING APPLIED. PT AMBULATORY TO DISCHARGE OFFICE W/ NO ACUTE INCIDENCE.
== END 2018-11-19 14:53 | disposition home or self-care (01) | DRG 92 ==
LOC: ED 00:31 → DU 02:13 → MU 11-18 15:44
PROVIDERS: Emergency Medicine; ADMIT Internal Medicine
DX: G92 Toxic encephalopathy (principal); E87.1 Hypo-osmolality and hyponatremia; E87.2 Acidosis; F10.239 Alcohol dependence with withdrawal, unspecified; Y90.9 Presence of alcohol in blood, level not specified; E87.6 Hypokalemia; E87.8 Other disorders of electrolyte and fluid balance, not elsewhere classified; E83.51 Hypocalcemia; F10.229 Alcohol dependence with intoxication, unspecified; Z79.899 Other long term (current) drug therapy
CPT/HCPCS: 97116-GP; G0378; G0480; J2060; J3480; J7030; J7040; Q0092

== ENCOUNTER 2019-01-16 12:59 | Emergency (ER) | payer OTHER ==
[~2019-01-16] VITALS: Ht 175.3 cm; Wt 90.7 kg
[~2019-01-16 12:59] MED LIST changes: +FOL1 PO; +LIB25 PO; +NIC21 TD; +THERA TABLET400 MCG PO; +THI100 PO
[2019-01-16 13:01] VITALS: BP 134/95; Ht 175.3 cm; Wt 90.7 kg
== END 2019-01-16 13:37 | disposition other institution (70) ==
LOC: ED 12:59
DX: Z02.89 Encounter for other administrative examinations (principal)

== ENCOUNTER 2019-01-20 13:05 | Emergency (ER) | payer MEDICAID ==
[~2019-01-20] VITALS: Ht 175.3 cm; Wt 86.6 kg
[2019-01-20 13:27] VITALS: Ht 175.3 cm; Wt 86.6 kg
[2019-01-20 16:18] LABS: BASOPHIL % 0.3 % (0-2); PLATELET COUNT 162 x10^3mcL (130-400)
[2019-01-20 16:19] LABS: RED CELL DISTRIBUTION WIDTH 14.9 % (11.5-14.5)
[2019-01-20 16:28] LABS: CALCIUM 8.9 mg/dL (8.5-10.1); CARBON DIOXIDE 28.3 mmol/L (21-32); CHLORIDE SERUM 101 mmol/L (98-107); CREATININE SERUM 0.8 mg/dL (0.7-1.3); GFR1 > 60 mL/min; GLUCOSE SERUM 85 mg/dL (74-106); POTASSIUM SERUM 4.2 mmol/L (3.5-5.1); SODIUM SERUM 140 mmol/L (136-145)
[2019-01-20 16:32] LABS: ALBUMIN 3.8 g/dL (3.4-5.0); ALKALINE PHOSPHATASE 126 U/L (46-116); ALT/SGPT 55 U/L (16-63); AST/SGOT 48 U/L (15-37); BILIRUBIN TOTAL 0.9 mg/dL (0.20-1.00); TOTAL PROTEIN, SERUM 7.7 g/dL (6.4-8.2)
[2019-01-20 17:31] VITALS: BP 125/95
== END 2019-01-20 17:31 | disposition home or self-care (01) ==
LOC: ED 13:05
PROVIDERS: Emergency Medicine
DX: S00.12XA Contusion of left eyelid and periocular area, initial encounter (principal); F10.239 Alcohol dependence with withdrawal, unspecified; F17.200 Nicotine dependence, unspecified, uncomplicated; Y90.0 Blood alcohol level of less than 20 mg/100 ml; Y04.0XXA Assault by unarmed brawl or fight, initial encounter; Y93.89 Activity, other specified; Y92.89 Other specified places as the place of occurrence of the external cause; Y99.8 Other external cause status
CPT/HCPCS: 36415; 99406; G0480; J3411

== ENCOUNTER 2019-03-28 15:24 | Emergency (ER) | payer OTHER ==
[~2019-03-28] VITALS: Ht 175.3 cm; Wt 90.7 kg
[2019-03-28 15:31] VITALS: Ht 175.3 cm; Wt 90.7 kg
[2019-03-28 17:54] VITALS: BP 158/98
== END 2019-03-28 17:54 | disposition home or self-care (01) ==
LOC: ED 15:24
DX: F10.239 Alcohol dependence with withdrawal, unspecified (principal); F10.229 Alcohol dependence with intoxication, unspecified; Y90.9 Presence of alcohol in blood, level not specified
CPT/HCPCS: J2060

== ENCOUNTER 2019-03-29 16:39 | Inpatient (IN) | payer OTHER ==
[~2019-03-29] VITALS: Ht 182.9 cm; Wt 92.0 kg
--- NOTE | 2019-03-29 17:36 | NUR ---
PT TO ED FOR EVAL OF SHAKINESS. PT STATES HE IS AN ALCOHOLIC AND STOPPED DRINKING 4 DAYS AGO. STATED TO DOCTOR HE STOPPED DRINKING THRUSDAY AT WIFES REQUEST. AFTER DOCTOR LEFT ROOM PT STATED "I DID HAVE TWO CLAMATO BEERS TODAY BUT I DON'T CONSIDER THAT ALCOHOL" PT IS AWAKE, ALERT, AND ORIENTED X 4. + TREMORS TO UPPER EXTREMITIES. DENIES ANY VISUAL OR AUDIO HALLUCINATIONS. MSE COMPLETED BY DR. GARVEY PT IV STARTED TO R AC AND MEDICATED ORDERED. PT ON CM. SIDERAILS UP X 2. CONTINUE TO MONITOR.
[2019-03-29 18:04] LABS: BASOPHIL % 0.3 % (0-2); PLATELET COUNT 210 x10^3mcL (130-400)
[2019-03-29 18:07] LABS: RED CELL DISTRIBUTION WIDTH 15.4 % (11.5-14.5)
[2019-03-29 18:19] LABS: ALBUMIN 3.9 g/dL (3.4-5.0); ALKALINE PHOSPHATASE 117 U/L (46-116); ALT/SGPT 64 U/L (16-63); AST/SGOT 38 U/L (15-37); BILIRUBIN TOTAL 0.5 mg/dL (0.20-1.00); CALCIUM 8.9 mg/dL (8.5-10.1); CARBON DIOXIDE 25.5 mmol/L (21-32); CHLORIDE SERUM 101 mmol/L (98-107); CREATININE SERUM 0.7 mg/dL (0.7-1.3); GFR1 > 60 mL/min; GLUCOSE SERUM 88 mg/dL (74-106); LIPASE 98 IU/L (73-393); POTASSIUM SERUM 3.6 mmol/L (3.5-5.1); SODIUM SERUM 140 mmol/L (136-145); TOTAL PROTEIN, SERUM 7.9 g/dL (6.4-8.2)
--- NOTE | 2019-03-29 19:12 | NUR ---
RESTING COMFORTABLY ON GURNEY AT THIS TIME. PT. IS HAVING VISUAL HALLUCINATIONS. PT STATED " DID YOU SEE THAT JORGE LUIS? IS HE IN THE CABINETS?" PT ALSO STATING " LOOK THE TOW TRUCK JUST PULLED IN" PT RE-ORIENTED . REMAINS ON GURNEY CALM AND COOPERATIVE. CONTINUE TO MONITOR. REPORT TO BETSY FOR CONTINUATION OF CARE.
--- NOTE | 2019-03-29 20:00 | NUR ---
PER DR. JENSEN CONDON TO GIVE ANOTHER DOSE OF PHENOBARBITUAL IV PER EMAR. WILL ADMINISTER.
--- NOTE | 2019-03-29 22:00 | NUR ---
PT AGITATED/RESTLESS AT THIS TIME, UNABLE TO CONSOLE, PT HALLUCINATING STATING HE NEEDS TO GET HIS FAMILY OUT OF HERE. PT FAMILY IS NOT IN ROOM. REORIENTATION TO PATIENT. PER DR. STYLES ATIVAN 2MG IVP, ADMINISTERED PER EMAR. PT PLACED ON 4 POINT RESTRAINTS AT THIS TIME, SKIN/PULSE WNL.
--- NOTE | 2019-03-29 22:11 | NUR ---
PER DR. JENSEN CONDON TO INITIATE PRECEDEX IV.
--- NOTE | 2019-03-29 22:19 | NUR ---
PER DR. JENSEN CONDON TO INITIATE PRECEDEX GTT. PRECEDEX INITATED @ 0.2 MCG/KG/HR AT THIS TIME.
--- NOTE | 2019-03-29 23:06 | NUR ---
INTUBATION NOTE: DR. STYLES AT BEDSIDE FOR INTUBATION. 2305 KETAMINE IVP 100 MG ADMINISTERED PER EMAR. 2306 SUCCUCHOLYNE IVP 150 MG ADMINISTERED PER EMAR. 2307 DR. STYLES INTUBATED, 7.5 ETT, 25 LL. LUNG SOUNDS AUSCULTATED BY DR. STYLES. STAT CEHST XRAY ORDERED.
--- NOTE | 2019-03-29 23:10 | NUR ---
PRECEEDEX GTT TITRATED TO 0.7 MCG/KG/HR PER DR. STYLES. PT RESTLESS AT THIS TIME. PT INTUBATED, REMAINS ON FULL CARDAIC MONITOR AND CONTINUOSE PULSE OXIMETRY. PT REMAINS ON 4 POINT RESTRAINTS FOR PATIENT SAFETY, SKIN/PULSE WNL.
--- NOTE | 2019-03-29 23:12 | NUR ---
PER DR. STYLES ADMINISTER IVP KETAMINE 100 MG FOR SEDATION. ADMINISTERED.
--- NOTE | 2019-03-29 23:25 | NUR ---
PROPOFOL GTT INITIATED AT THIS TIME @ 10 MCG/KG/HR TO ACHIEVE RSS-4.
[2019-03-29 23:30] VITALS: BP 116/77
[2019-03-30] VITALS (17 sets, daily range): BP systolic 95–125; BP diastolic 63–86
--- NOTE | 2019-03-30 00:10 | NUR ---
DR. MANN AT BEDSIDE FOR ASSESSMENT. UPDATES PROVIDED BY NURSING STAFF. PER DR. MANN OK TO INITATE HOPE CATHETER.
--- NOTE | 2019-03-30 00:31 | NUR ---
FENTANYL GTT INITIATED @ 0.5 MCG/KG/HR.
--- NOTE | 2019-03-30 00:55 | NUR ---
MRSA CULTURE OBTAINED, SENT TO LAB GIVEN TO KIANA MELO.
[2019-03-30 00:57] LABS: microscopic required? NO
--- NOTE | 2019-03-30 01:05 | NUR ---
PRECEDEX GTT TITRATED TO 0.2 MCG/KG/HR PER DR. STYLES. RSS=5 AT THIS TIME.
--- NOTE | 2019-03-30 01:10 | NUR ---
LEVOPHED GTT INITATED @ 2 MCG/MIN. NIBP 77/44 (52).
--- NOTE | 2019-03-30 01:10 | NUR ---
SPOKE WITH DR. MANN ON PT'S POTASSIUM IV ORDER. PER DR. MANN OK TO ADMINISTER.
--- NOTE | 2019-03-30 01:11 | NUR ---
SPOKE WITH DR. MANN ON PTS STATUS. PER DR. MANN NO NEED FOR BLOOD CULTURES. WILL ADMINISTER ZOSYN PER EMAR.
[2019-03-30 01:14] LABS: UA SPECIFIC GRAVITY 1.025 (1.005-1.035); urine erythrocyte NEGATIVE (NEGATIVE)
--- NOTE | 2019-03-30 01:30 | NUR ---
LEVOPHED GTT TITRATED TO 4 MCG/MIN. NIBP 83/51 (61).
--- NOTE | 2019-03-30 01:30 | NUR ---
PROPOFOL GTT TITRATED TO 5 MCG/KG/MIN. RSS=5 SLUGGISH RESPONSE.
--- NOTE | 2019-03-30 01:39 | NUR ---
LEVOPHED TITRATED TO 6 MCG/MIN PER DR. STYLES.
--- NOTE | 2019-03-30 01:40 | NUR ---
PT'S AT BEDSIDE. DR. STYLES AT BEDSIDE SPEAKNIG WITH ON PLAN OF CARE AND DISEASE PROCESS.
--- NOTE | 2019-03-30 01:53 | NUR ---
PT AT BEDSIDE. PT REMAINS ON FULL MONITOR.
--- NOTE | 2019-03-30 02:00 | NUR ---
BLE RESTRAINTS REMOVED AT THIS TIME. PT REMAINS ON BUE SOFT WRIST RESTRAINTS FOR PT SAFETY, SKIN/PULSE WNL.
[2019-03-30 02:06] LABS: AMPHETAMINE QUAL UR NONE DETECTED (See below)
--- NOTE | 2019-03-30 02:45 | NUR ---
FENTANYL GTT TITRATED TO 0.25 MCG/KG/HR. RSS=5.
--- NOTE | 2019-03-30 02:50 | NUR ---
PRECEDEX GTT TITRATED TO 0.1 MCG/KG/HR, RSS-5.
--- NOTE | 2019-03-30 03:20 | NUR ---
FIO2 TITRATED TO 50% BY RT VINOD.
--- NOTE | 2019-03-30 04:25 | NUR ---
LEVOPHED TITRATED TO 4 MCG/MIN. NIBP 122/75 (84).
[2019-03-30 05:41] LABS: BASOPHIL % 0.1 % (0-2); PLATELET COUNT 203 x10^3mcL (130-400)
[2019-03-30 05:42] LABS: RED CELL DISTRIBUTION WIDTH 15.2 % (11.5-14.5)
--- NOTE | 2019-03-30 05:50 | NUR ---
PT INTUBATED/SEDATED ON FENTANYL GTT @ 0.25 MCG/KG/HR, PROPOFOL GTT @ 5 MCG/KG/MIN, PRECEDEX GTT @ 0.1 MCG/KG/HR. RSS=4. PT UNABLE TO FOLLOW SIMPLE COMMANDS OR MAKE NEEDS KNOWN. EYES DO NOT OPEN SPONT, DO NOT TRACK. PT RESPONDS TO TACTILE/PAINFUL STIMULI. PUPILS 3MM SLUGGISH RESPONSE TO LIGHT B/L, PERRLA. GAG REFLEX PRESENT WHEN SUCTIONED. PT INTUBATED TO VENT, INTACT/SECURED. OGT INTACT/SECURED, AIR AUSCULTATED OVER GASTRIC REGION FOR PLACEMENT, XRAY FOR CONFIRMATION. TRACHEA MIDLINE, NO DRAINAGE TO EENT. 7.5 ETT, 25LL. ORAL CARE PROVIDED PER VAP PROTOCOL. VENT SETTINGS AC MODE FIO2 50%, RATE 14, VT 450, PEEP 5. CHEST RISE/FALL SYMMETRIC, E/U VENT BREATHING. NO ACUTE RESPIRATORY DISTRESS. LUNG SOUNDS COARSE TO BUL, DIMINISHED BASES. S1/S2 SOUNDS. NO S/S OF CHEST PAIN. PT ON FULL TOBACCO SAMPLE PULLER, NSR ON MONITOR. SKIN COLOR CONSISTENT WITH ETHNICITY, CAP REFILL <3 SEC X4 EXTREMITIES. PULSES MODERATE TO BUE, WEAK TO BLE. RAC 20G, LAC 18G, RIGHT HAND 20G, PORTS PATENT, NO S/S OF INFILTRATION, DRESSING CDI BED REST, TOTAL CARE. NO CONTRACTURES/DEFORMITES, JOINTS INTACT. PT ON TURN SCHED Q2H. BUE SOFT WRIST RESTRAINTS, SKIN/PULSE WNL, FOR PATIENT SAFETY PATIENT ATTEMPTS TO PULL ETT/OGT WHEN OFF. NO S/S OF N/V. ACTIVE BOWEL SOUNDS X4 QUADRANTS, ABD SOFT/ROUND. NO BM NOTED. F/C DRAINING TO GRAVITY RANULFO CLEAR URINE, INTACT/SECURED. NO PENILE EDEMA OR DISCHARGE NOTED. PT ICU HOLD IN ER, WILL ENDORSE TO ONCOMING SHIFT NURSE.
--- NOTE | 2019-03-30 05:52 | NUR ---
RT VINOD TITRATED FIO2 TO 40%.
--- NOTE | 2019-03-30 06:20 | NUR ---
LEVOPHED TITRATED TO 2 MCG/MIN. NIBP 107/68 (80).
--- NOTE | 2019-03-30 07:06 | NUR ---
GAVE REPORT TO KATERYNA SOLORZANO RN. UPDATES PROVIDED, QUESTIONS ANSWERED.
--- NOTE | 2019-03-30 07:06 | NUR ---
SBAR REPORT RECEIVED FROM ISHA MEYER. ASSUMING ALL CARE AT THIS TIME. PATIENT INTUBATED AND SEDATED IN NAD WITH STABLE VITALS. AIRWAY PATENT, RESPIRATIONS EVEN AND NON-LABORED ON VENT. SKIN WARM, DRY. HOPE IN PLACE. PERIPERAL IV PATENT WITH MAINTENENCE FLUIDS, PROPOFOL, FENTANYL, PRECEDEX, LEVOPHED MAINTAINED. WILL CONTINUE TO MONITOR.
--- NOTE | 2019-03-30 08:01 | NUR ---
PROPOFOL TITRATED TO 5 MCG/KG/MIN.
--- NOTE | 2019-03-30 08:22 | NUR ---
PATIENT EXTREMELY AGITATED AND BITING AT TUBE. PROPOFOL GTT TIRATED TO 12MCG/KG/MIN.
--- NOTE | 2019-03-30 08:33 | NUR ---
SBAR REPORT GIVEN TO ISHA WILEY IN ICU WHO WILL ASSUME ALL CARE. ALL QUESTIONS ANSWERED AT THIS TIME.
--- NOTE | 2019-03-30 08:40 | NUR ---
PER DR. MALDONADO, IF PATIENT WAKES UP OK TO EXTUBATE.
[2019-03-30 08:45] LABS: CALCIUM 7.9 mg/dL (8.5-10.1); CARBON DIOXIDE 23.4 mmol/L (21-32); CHLORIDE SERUM 106 mmol/L (98-107); CREATININE SERUM 0.7 mg/dL (0.7-1.3); GFR1 > 60 mL/min; GLUCOSE SERUM 122 mg/dL (74-106); MAGNESIUM 2.1 mg/dL (1.8-2.4); POTASSIUM SERUM 4.1 mmol/L (3.5-5.1); SODIUM SERUM 139 mmol/L (136-145)
--- NOTE | 2019-03-30 09:00 | NUR ---
PATIENT RECEIVED ON UNIT ACCOMPANIED BY RT DECKER, ED RN AND LINING STITCHER. PATIENT AWAKENS TO VERBAL STIMULI. PROPOFOL INFUSING AT 12 MCG/KG/MIN, PRECEDEX AT 0.1 MCG/KG, LEVOPHED 2 MCG/MIN, FENTANYL AT 0.25 MCG/KG/HR AND D5NS AT 80 ML/HR. ETT IN PLACE AT [address] CLAMPED. IV TO LAC, RH AND RAC IN PLACE WITH NO S/S OF INFILTRATION NOTED. ABDOMEN ROUND. SMALL SUPERFICIAL SCABS NOTED TO LUE. F/C IN PLACE DRAINING TO GRAVITY STRAW COLORED URINE. NO BM AT THIS TIME. RESTRAINTS IN PLACE PATIENT ATTEMPTS TO PULL ON TUBING AND LINES. NO S/S OF DISTRESS OR DISCOMFORT NOTED. WILL CONTINUE TO MONITOR.
--- NOTE | 2019-03-30 09:25 | NUR ---
PATIENT'S KODI AT BEDSIDE TO VISIT WITH PATIENT. KODI ASSISTED NURSING WITH PATIENT HISTORY. KODI ALSO CONSENTED FOR PATIENT TO RECEIVE INFLUENZA VACCINE. WILL ADMINISTER THIS SHIFT.
--- NOTE | 2019-03-30 09:34 | NUR ---
JERONIMO LAM AT BEDSIDE AND TITRATED FIO2 ON VENT FROM 40% TO 30%. WILL CONTINUE TO MONITOR.
--- NOTE | 2019-03-30 10:20 | NUR ---
LEVOPHED TITRATED FROM 2 MCG TO 1 MCG/MIN.
--- NOTE | 2019-03-30 11:00 | NUR ---
PATIENT'S BP 118/81, MAP 86. LEVOPHED TITRATED OFF. WILL CONTINUE TO MONITOR.
--- NOTE | 2019-03-30 14:15 | NUR ---
PATIENT RESTLESS, ATTEMPTING TO SIT UP IN BED. PATIENT ADMINISTERED 2 MG ATIVAN IVP FOR RESTLESSNESS.
--- NOTE | 2019-03-30 18:00 | NUR ---
TUBE FEED INITIATED AT 10 ML/HR WITH FWF 50 Q 4 HOURS.
--- NOTE | 2019-03-30 18:17 | NUR ---
FENTANYL TITRATED OFF AT THIS TIME.
--- NOTE | 2019-03-30 19:12 | NUR ---
REPORT GIVEN TO ARDEN MEYER RN FOR CONTINUITY OF CARE.
--- NOTE | 2019-03-30 20:16 | NUR ---
RECEIVED CHANGE OF SHIFT REPORT FROM VICTORINO VIEIRA AND HALLE VIEIRA. PT IS SEDATED ON PROPOFOL 10MCG/KG/HR, PRECEDEX 0.3 MCG/KG/HR. RSS OF 5. PT IS INTBATED ETT 7.5CM AT 25 LL. PT ON AC MODE. NO EDEMA, SCD IN PLACE. NSR NO S/SX OF CP. PT HAS SCABS ON HIS LEFT FOREARM TO ELBOW. PT ON TUBE FEEDING VITAL AF THROUHG OGT AT 10ML/HR WITH FWF 50ML Q4HR. PT HAS LH, LAC, RAC PERIPHERAL IV. HOPE INTACT AND DRAINING VIA GRAVITY, URINE IS RANULFO CLEAR COLOR. PT IS ON BILATERAL SOFT WRIST RESTRAINTS. PT ON CONTINUOUS MANAGER STORE AND PULSE OX MONITOR. WILL CONTINUE TO MONITOR.
--- NOTE | 2019-03-30 20:45 | NUR ---
GRV: 30ML. TITRATED FEED RATE TO 20ML/HR WITH FWF 50ML Q4H. WILL CONTINUE TO MONITOR.
--- NOTE | 2019-03-30 21:55 | NUR ---
RSS OF 3. PT SEEMS RESTLESS AND AGITATED. TITRATED THE PROPOFOL TO 20MCG/KG/HR. WILL CONTINUE TO MONITOR
[2019-03-31] VITALS (18 sets, daily range): BP systolic 129–153; BP diastolic 87–104; Ht 182.9 cm; Wt 92.0 kg
--- NOTE | 2019-03-31 03:41 | NUR ---
GRV: 50ML. TITRATED UP FEEDING RATE (VITAL AF) TO 30ML/HR WITH FWF 50ML Q4HR. WILL CONTINUE TO MONITOR.
[2019-03-31 05:35] LABS: BASOPHIL % 0.3 % (0-2); PLATELET COUNT 173 x10^3mcL (130-400)
[2019-03-31 05:47] LABS: RED CELL DISTRIBUTION WIDTH 15.7 % (11.5-14.5)
--- NOTE | 2019-03-31 05:57 | NUR ---
PATIENT REMAINS AGITATED AND RESTLESS. RSS OF 1. TITRATED PROPOFOL TO 30MCG/KG/MIN. WILL CONTINUE TO MONITOR.
[2019-03-31 06:01] LABS: ALKALINE PHOSPHATASE 75 U/L (46-116); ALT/SGPT 34 U/L (16-63); AST/SGOT 20 U/L (15-37); BILIRUBIN TOTAL 0.43 mg/dL (0.20-1.00); CALCIUM 8.3 mg/dL (8.5-10.1); CARBON DIOXIDE 28.4 mmol/L (21-32); CHLORIDE SERUM 108 mmol/L (98-107); CREATININE SERUM 0.5 mg/dL (0.7-1.3); GFR1 > 60 mL/min; GLUCOSE SERUM 102 mg/dL (74-106); MAGNESIUM 2.1 mg/dL (1.8-2.4); POTASSIUM SERUM 3.5 mmol/L (3.5-5.1); SODIUM SERUM 142 mmol/L (136-145)
[2019-03-31 06:02] LABS: ALBUMIN 2.7 g/dL (3.4-5.0); TOTAL PROTEIN, SERUM 6.1 g/dL (6.4-8.2)
--- NOTE | 2019-03-31 07:07 | NUR ---
GAVE CHANGE OF SHIFT REPORT TO MARIZA VEIIRA. ENDORSE CARE AND ANSWER ALL QUESTIONS MARIZA ASK.
--- NOTE | 2019-03-31 13:59 | NUR ---
SCREEN FOR LOW KUNAL SCALE AT RISK, CONTINUE TO FOLLOW PRESSURE ULCER PREVENTION INTERVENTIONS. -TURN AND REPOSITION PATIENT Q 2H -ASSESS AND MONITOR SKIN CONDITION DURING POSITION CHANGE -OFFLOAD BILATERAL HEELS BY PLACING PILLOWS UNDER CALVES AT ALL TIMES, UNLESS OTHERWISE CONTRAINDICATED -PRESSURE REDISTRIBUTION BY PLACING PILLOWS AND OFFLOADING SACRALCOCCYX -KEEP SKIN CLEAN AND DRY AT ALL TIMES.
--- NOTE | 2019-03-31 17:30 | NUR ---
TOTAL CARE PROVIDED, PT GIVEN BED BATH, REPOSITIONED AND CHUX AND LINEN CHANGED. HOPE CARE AND ORAL CARE PROVIDED. PT TOLERATED WELL.
--- NOTE | 2019-03-31 18:54 | NUR ---
RC'D CALL FROM . UPDATED ON PTS CURRENT STATUS. ALL QUESTIONS AND CONCERNS ADDRESSED. TO COME VISIT LATER THIS EVENING
--- NOTE | 2019-03-31 19:05 | NUR ---
REPORT GIVEN TO KITA VIEIRA. UPDATED ON PTS CURRENT STATUS. ALL QUESTIONS AND CONCERNS ADDRESSED
--- NOTE | 2019-03-31 19:05 | NUR ---
RECEIVED PT FROM TROY VIEIRA. UPDATES PROVIDED. RECEIVED PT INTUBATED/SEDATED ON PRECEDEX GTT AND PROPOFOL GTT. PT ON FULL [place] LAYER AND CONTINUOUS PULSE OXIMETRY. HOB ELEVATED 30 DEGREES, BED AT LOWEST SETTING, CALL LIGHT WITHIN REACH. F/C DRAINING TO GRAVITY YELLOW URINE. OGT INFUSING VITAL AF. SEE NURSING SHIFT ASSESSSMENT FOR MORE DETAILS.
[2019-04-01] VITALS (11 sets, daily range): BP systolic 125–151; BP diastolic 74–101
--- NOTE | 2019-04-01 02:05 | NUR ---
PROPOFOL GTT TITRATED TO 20 MCG/KG/MIN. RSS=5.
--- NOTE | 2019-04-01 05:05 | NUR ---
TOTAL CARE PROVIDED, PROVIDED PT FULL BED BATH, HOPE CARE PROVIDED. CHUCKS, GOWN, LINEN CHANGED. PT HAD SMALL BROWN BM, PERIAREA CLEANED. BED AT LOWEST SETTING, CALL LIGHT WITHIN REACH, HOB ELEVATED 30 DEGREES. NO ACUTE CHANGES TO SHIFT ASSESSMENT.
[2019-04-01 05:32] LABS: BASOPHIL % 0.1 % (0-2); PLATELET COUNT 188 x10^3mcL (130-400)
[2019-04-01 05:36] LABS: RED CELL DISTRIBUTION WIDTH 15.7 % (11.5-14.5)
[2019-04-01 06:04] LABS: ALKALINE PHOSPHATASE 71 U/L (46-116); ALT/SGPT 34 U/L (16-63); AST/SGOT 22 U/L (15-37); BILIRUBIN TOTAL 0.3 mg/dL (0.20-1.00); CARBON DIOXIDE 27.4 mmol/L (21-32); CHLORIDE SERUM 108 mmol/L (98-107); CREATININE SERUM 0.5 mg/dL (0.7-1.3); GFR1 > 60 mL/min; GLUCOSE SERUM 103 mg/dL (74-106); POTASSIUM SERUM 3.3 mmol/L (3.5-5.1); SODIUM SERUM 144 mmol/L (136-145)
[2019-04-01 06:08] LABS: ALBUMIN 2.5 g/dL (3.4-5.0)
--- NOTE | 2019-04-01 06:55 | NUR ---
DR. MALDONADO CALLED BACK, UPDATED HIM ON PT'S LABS, ORDERED 40 MEQ THROUGH NG TUBE, AND UPDATED HIM ON PT'S CHEST XRAY. PER DR. MALDONADO TO RETRACT 2 CM, RT QUINTON MADE AWARE. WILL ENDORSE TO ONCOMING SHIFT NURSE.
--- NOTE | 2019-04-01 07:15 | NUR ---
GAVE REPORT TO ISHA RADFORD. UPDATES PROVIDED, QUESTIONS ANSWERED. ENDORSED CARE.
--- NOTE | 2019-04-01 07:30 | NUR ---
PATIENT REMAINS ON VENT AND SEDATION WITH PROPOFOL AT 20MCG/KG/MIN AND PRECEDEX AT 0.6MCG/KG/HR. PATIENT RESPONDS TO VERBAL STIMULI, FOLLOWS COMMANDS AND GESTURES/WRITES TO COMMUNICATE. PATIENT STATES FEELING ANXIOUS; PRECEDEX TITRATED UP TO 0.7MCG/KG/HR. ETT 7.5 SECURED AT 25CM AT LIPLINE. ETT TO VENT VIA VCV/AC MODE: FIO2 30%, RATE 14, VT 450, PEEP 5. OGT IN PLACE AND SECURED TO ETT. OGT PLACEMENT VERIFIED WITH SOME AIR BOLUS. RESIDUAL 40ML NOTED AND REPLACED. OGT TO TUBE FEEDING WITH VITAL AF AT 40ML/HR AND FREE WATER FLUSH 50ML/Q4HR. TELE # 2 SHOWS NORMAL SINUS RHYTHMS. IVF SITES TO RAC, RIGHT HAND AND LAC. IVF D5NS AT 80ML/HR. HOPE CATH TO GRAVITY DRAINING YELLOW URINE. SOFT WRIST RESTRAINTS TO BOTH WRISTS TO PREVENT PATIENT FROM PULLING AT TUBE/LINE AND WILL BE RELEASED FOR ROM Q2H/PRN. CALL LIGHT WITHIN REACH. SIDE RAILS UP X3. BED IS AT LOWEST POSITION, ALARM IS ON, HEAD OF BED ELEVATED AND EXTREMITIES OFFLOADED.
--- NOTE | 2019-04-01 08:00 | NUR ---
RT WAS AT BEDSIDE AND RETRACTED THE ETT FROM 25CM TO 23CM.
--- NOTE | 2019-04-01 08:27 | NUR ---
PATIENT WAS PLACED ON CPAP: PEEP 5 AND PSV 10 BY RT.
--- NOTE | 2019-04-01 09:02 | NUR ---
DR. MALDONADO WAS AT BEDSIDE TO SEE THE PATIENT AND CHANGED THE CPAP SETTING TO 5/5. PER DOCTOR JOEL, PRECEDEX CAN BE TITRATED UP TO 1.2MCG/KG/HR TO CALM THE PATIENT. ALSO ATIVAN 2MG IVP Q1HR PRN.
--- NOTE | 2019-04-01 09:05 | NUR ---
OGT FEEDING ON HOLD WHILE THE PATIENT IS ON CPAP TRIAL. PER DR. MALDONADO, IF THE PATIENT IS GOOD WITH THE TRIAL AND ABG BLOOD GAS IS GOOD, THEN IMPLEMENT THE SWALLOW SCREEN AT BEDSIDE BY NURSING AND START LIQUID FOR THE PATIENT TODAY.
--- NOTE | 2019-04-01 10:38 | NUR ---
RT ACUNA WAS AT BEDSIDE EXTUBATED THE PATIENT AND PLACED THE PATIENT ON OXYGEN 2L/MIN VIA NASAL CANNULA. PATIENT WAS INSTRUCTED NOT TO TALK FOR AT LEAST 2HOURS TO SAFE THE VOCAL CORD. AND BEDSIDE SWALLOW SCREEN WILL BE IMPLEMENTED BEFORE THE PATIENT HAS FULL LIQUID DIET.
--- NOTE | 2019-04-01 12:45 | NUR ---
PATIENT CALM AT THIS TIME. PRECEDEX TITRATED FROM 0.7 MCG/KG/HR DOWN TO 0.5MCG/KG/HR.
--- NOTE | 2019-04-01 13:06 | NUR ---
SWALLOW SCREEN WAS IMPLEMENTED AT BEDSIDE: PATIENT SWALLED ICE CHIPS, JELLO, PUDDING, APPLE SAUCE AND WATER WITH NO DIFFICULTY WITH NO COUGHING/CHOKING. FULL LIQUID DIET SET UP AT BEDSIDE FOR THE PATIENT.
--- NOTE | 2019-04-01 15:49 | NUR ---
Initial Nutrition Assessment: ICU2 KEN LERMA 50M HR IA Dx: alcohol withdraw PMHx: none noted per H and P PSHx: none noted per H and P Labs: (04/01) K 3.3L, CL 108H, BUN 3.0L, Cr 0.5L, A/G 0.7L, H/H 11.8/35l Meds: Ativan, D 5%, Diprivan 100ml (200ml on 04/01), KCL, [place], Precedex, Theragran, Vitamin B1, Zosyn Diet: full liquid -this will provide a volume of 960ml, 1152kcal, 72g proteins and 802.56ml free water meeting 74% of the estimated energy needs (Propofol included) and 60% of the estimated protein needs. PO intake since admission: PT on TF Ht: 183cm/72in Wt: 91.6kg/201lbs BMI: 27.4 Bed scale: n/a IBW: 80.9kg/178lbs %IBW: 113% UBW: 221lbs per pt Age: 49 Food Allergies: NKFA Skin: not wnl, scabs to LT arm Mainor: 15 Edema: no edema noted GI: wnl, abd round. BS active. Last BM: 04/01 morning Per H and P (03/30), pt was brought in d/t alcohol withdraw presenting with acute hypoxic and hypercapnic respiratory failure. Per shift reassessment (04/01), pt was on vent and sedated with Propofol at 20 mcg/kg/min (approximately 290kcal). RD Note (04/01) Pt was sitting in bed during bedside visit. Per RN, pt was extubated and tolerating full liquid diet. Per pt, he is an alcoholic and he has frequent relapses. Pt also reported good appetite without any significant GI symptoms. Problem with: N/V/D/C: none per pt Problems with: Chewing: Swallowing: none per pt Current appetite: good Recent wt change: 20lbs decreased per pt %wt change: 9% Vitamin/Supplement use: n/a Special diet at home: unable to obtain Physical activity: unable to obtain Nutrition education given (specify specific nutrition education and handout given): Pt was a little emotional during bedside visit. Explained the caloric content of alcohol and provided written education on sobriety diet. Encouraged pt to maintain a well-balanced diet. Food-drug interactions? Education given? n/a Estimated Nutritional Needs Based on ideal body weight (81kg) Energy:1613-0684 vs 1953 kcal/day (25-30 kcal/kg vs PSU for vent dependent) Protein: 121-162g/day (1.5-2 g/kg for vent dependent) Fluid:3598-2625 mL/day (1 mL/kcal) Nutrition Diagnosis: 1. Increased vitamin B1 needs r/t alcohol abuse a/e/b pt admitted for alcohol withdraw. 2. Undesired food choice r/t nutrition related knowledge deficit a/e/b pt reported frequent use of alcohol. Intervention 1. Recommend advance diet to regular diet when it is medically appropriate Monitor/Evaluate Goal: PO intake at least 75% of estimated needs Monitor: PO intake, Labs, GI function F/U in 5-7 days as low risk 04/08
--- NOTE | 2019-04-01 15:49 | NUR ---
1. Recommend advance diet to regular diet when it is medically appropriate
--- NOTE | 2019-04-01 18:08 | NUR ---
P.T. NOTES P.T. EVAL COMPLETED; PATIENT MAY AMBULATE W/ NURSE AD RUBA; REPORTS FEELING ANXIOUS, RN AWARE.
--- NOTE | 2019-04-01 18:15 | NUR ---
PATIENT C/O ANXIETY; PRECEDEX TITRATED FROM 0.5MCG/KG/HR TO 0.7MCG/KG/HR TO MAKE PATIENT FEEL COMFORTABLE.
--- NOTE | 2019-04-01 18:49 | NUR ---
PATIENT C/O EPISODES OF ANXIETY; ATIVAN 2MG IVP WAS MEDICATED TO THE PATIENT PER PRN IN ADDITION TO PRECEDEX DRIP TO CALM PATIENT. PATIENT TOLERATED WELL WITH FULL LIQUID DIET FOR LUNCH AND DINNER.
--- NOTE | 2019-04-01 19:05 | NUR ---
RECEIVED REPORT FROM RON VIEIRA. WILL RESUME CARE.
--- NOTE | 2019-04-01 19:51 | NUR ---
Spoke to regarding Percedex drip , new orders to D/C Percedex drip noted and carried out. RN informed at this time. Will continue to monitor.
--- NOTE | 2019-04-01 19:55 | NUR ---
PRECEDEX GTT OFF AT THIS TIME PER DR. MANN ORDER.
--- NOTE | 2019-04-01 23:13 | NUR ---
ASSESSED PT. BREATHING E/U. NO SOB OR RESPIRATORY DISTRESS NOTED. PT RESTING COMFORTABLY IN BED AT THIS TIME. VS STABLE. WILL CONTINUE TO MONITOR.
--- NOTE | 2019-04-02 02:45 | NUR ---
PT AMBULATED TO BEDSIDE COMMODE WITH SLOW STEADY GAIT. HAD LARGE BROWN FORMED BM.
[2019-04-02 03:10] VITALS: BP 134/91
--- NOTE | 2019-04-02 04:50 | NUR ---
PUBLIC INFORMATION RELATIONS MANAGER AT BEDSIDE FOR BLOOD DRAW.
[2019-04-02 05:25] LABS: BASOPHIL % 0.2 % (0-2); PLATELET COUNT 209 x10^3mcL (130-400)
[2019-04-02 05:26] LABS: RED CELL DISTRIBUTION WIDTH 15.5 % (11.5-14.5)
[2019-04-02 06:20] LABS: ALKALINE PHOSPHATASE 69 U/L (46-116); ALT/SGPT 37 U/L (16-63); AST/SGOT 24 U/L (15-37); BILIRUBIN TOTAL 0.4 mg/dL (0.20-1.00); CARBON DIOXIDE 29.6 mmol/L (21-32); CHLORIDE SERUM 106 mmol/L (98-107); CREATININE SERUM 0.6 mg/dL (0.7-1.3); GFR1 > 60 mL/min; GLUCOSE SERUM 86 mg/dL (74-106); POTASSIUM SERUM 3.4 mmol/L (3.5-5.1); SODIUM SERUM 142 mmol/L (136-145); TOTAL PROTEIN, SERUM 6.3 g/dL (6.4-8.2)
[2019-04-02 06:21] LABS: ALBUMIN 2.7 g/dL (3.4-5.0)
--- NOTE | 2019-04-02 07:20 | NUR ---
RECEIVED PT. IN BED A/A/O X3. NO SOB, NO N/V NOTED. PT. DENIES ANY PAIN AT THIS TIME. D5NS RUNNING AT 80 CC/HR VIA IV SITE AT L AC. IV SITE #2 NOTED TO R AC. IV SITE #3 NOTED TO L HAND. F/C DRAINING RANULFO URINE. BED IN LOW POS., CALL LIGHT WITHIN REACH. SIDE RAILS UP X3.
[2019-04-02 08:00] VITALS: BP 127/94
--- NOTE | 2019-04-02 08:10 | NUR ---
PT. IS BEING SEEN BY Shawn LANDEROS AT THIS TIME.
--- NOTE | 2019-04-02 11:05 | NUR ---
C/O FEELING ANXIOUS; ATIVAN 2MG PO GIVEN.
--- NOTE | 2019-04-02 12:00 | NUR ---
PT. VOIDED FREELY POST F/C REMOVAL.
[2019-04-02 12:23] VITALS: BP 147/95
--- NOTE | 2019-04-02 13:15 | NUR ---
C/O FEELING ANXIOUS; ATIVAN 2MG PO GIVEN.
--- NOTE | 2019-04-02 14:30 | NUR ---
RECEIVED REPORT FROM ANDREW VIEIRA. AWAITING PATIENT ARRIVAL TO FLOOR.
[2019-04-02 16:16] VITALS: BP 133/87
--- NOTE | 2019-04-02 16:33 | NUR ---
CALLED AND GAVE REPORT TO ISHA OLSEN IN [address] [place] [place] [address]. ALL QUESTIONS AND CONCERNS ADDRESSED.
--- NOTE | 2019-04-02 17:26 | NUR ---
C/O FEELING ANXIOUS; ATIVAN 2MG PO GIVEN.
[2019-04-02 18:04] VITALS: BP 121/77
--- NOTE | 2019-04-02 18:04 | NUR ---
RECEIVED PATIENT TO FLOOR VIA WHEELCHAIR ACCOMPANIED BY ISHA MORALES. PT ORIENTED TO ROOM, CALL LIGHT, AND INFORMED THAT I WILL BE HIS NURSE FOR THE NEXT HOUR AND A HALF. PT VERBALIZED UNDERSTANDING AND ASKED ABOUT HIS ATIVA ADMINISTRATION. I NOTIFEIED PATIENT THAT I WILL CHECK WHEN IT IS AVAILABLE. VITALS WERE TAKEN AND STABLE (SEE DOCUMENTATION). ALL QUESTIONS AND CONCERNS ADDRESSED.
--- NOTE | 2019-04-02 18:15 | NUR ---
PT. IS BEING TRANSFERRED TO [address] [place] [address] (ROOM [address]) IN STABLE CONDITION WITH ALL BELONGINGS.
--- NOTE | 2019-04-02 19:20 | NUR ---
RECIEVED PT RESTING IN BED WITH NO ACUTE DISTRESS NOTED AT THIS TIME, ASSESSMENT PERFORMED AT THIS TIME, PT IS A/OX4 NO COMPLAINTS OF OVERTON OR DIZZINESS, PT SPEAKS CLEAR, ABLE TO MAKE NEEDS KNOWN, PT DENIES PAIN OR SOB AT THIS TIME, PT STEADY, NO SHAKING OR TREMORS, SIEZURE PRECAUTIONS IN PLACE, TELE20 NSR, IVS TO THE RAC, LAC, AND LH, NO REDNESS OR SWELLING TO ANY OF THEM SALINE LOCKED, PT DENIES HALLUCINATIONS AT THIS TIME, ALL PT NEEDS ATTENDED TO AT THIS TIME, SAFETY PRECAUTIONS IN PLACE, WILL CONTINUE TO MONITOR
--- NOTE | 2019-04-02 19:42 | NUR ---
REPORT GIVEN TO FELIZ VIEIRA. ALL QUESTIONS AND CONCERNS ADDRESSED. ALL CARES ENDORSED.
[2019-04-02 21:44] VITALS: BP 116/70
--- NOTE | 2019-04-02 21:46 | NUR ---
PT REPORTING ANXIOUSNESS, ADMINISTERED ATIVAN PO PRN PER ORDER, SAFETY PRECAUTIONS IN PLACE, WILL CONTINUE TO MONITOR
--- NOTE | 2019-04-02 23:50 | NUR ---
PT RESTING IN BED WITH NO ACUTE DISTRESS NOTED AT THIS TIME, NO SIGNS OF PAIN, TREMORS, OR SOB, SAFETY PRECAUTIONS IN PLACE, WILL CONTINUE TO MONITOR.
--- NOTE | 2019-04-03 05:09 | NUR ---
PT RESTED THROUGH THE NIGHT WITH NO DISTRESS NOTED, PT HAD SOME ANXIOUSNESS IN THE BEGINING OF SHIFT BUT SUBSIDED WITH PRN ADMINISTRATION OF ATIVAN PER ORDER, ALL PT NEEDS ATTENDED TO SAFETY PRECAUTIONS IN PLACE, WILL CONTINUE TO MONITOR AND ENDORSE CARE TO ONCOMING SHIFT
--- NOTE | 2019-04-03 05:30 | NUR ---
PT COMPLAINING OF ANXIOUSNESS, ADMINISTERED ATIVAN PO PER PRN ORDER (SEE MAR) WILL COTNINUE TO MONITOR
[2019-04-03 05:51] VITALS: BP 137/90
[2019-04-03 07:01] LABS: BASOPHIL % 0.4 % (0-2); PLATELET COUNT 248 x10^3mcL (130-400)
[2019-04-03 07:09] LABS: RED CELL DISTRIBUTION WIDTH 15.3 % (11.5-14.5)
--- NOTE | 2019-04-03 07:10 | NUR ---
RECEIVED PT FROM HEAD OF PRECISION TARGETING RN. Marlene/OX4. PT DENIES ANY HALLUCINATIONS AT THIS TIME. TELE#20. DENIES CHEST PAIN/PRESSURE. RESPIRATIONS EQUAL AND UNLABORED ON RA. DENIES SOB. PT DENIES ANY PAIN AT THIS TIME. PT DENIES ANY N/V AT THIS TIME. PT ASKING WHEN HE IS ABLE TO GO HOME. EXPLAINED TO PT WILL WAIT FOR DOCTOR TO FIND OUT PLAN FOR TODAY. PT VERBALIZED UNDERSTANDING. PT DENIES ANY ANXIETY AT THIS TIME. IV TO LH PATENT AND INFUSING. NO REDNESS OR SWELLING NOTED. WILL CONTINUE TO MONITOR. CALL LIGHT IN REACH. BED IN LOWEST POSITION.
[2019-04-03 07:27] LABS: ALKALINE PHOSPHATASE 81 U/L (46-116); ALT/SGPT 60 U/L (16-63); AST/SGOT 41 U/L (15-37); BILIRUBIN TOTAL 0.2 mg/dL (0.20-1.00); CALCIUM 8.2 mg/dL (8.5-10.1); CARBON DIOXIDE 27.8 mmol/L (21-32); CHLORIDE SERUM 106 mmol/L (98-107); CREATININE SERUM 0.7 mg/dL (0.7-1.3); GFR1 > 60 mL/min; GLUCOSE SERUM 97 mg/dL (74-106); MAGNESIUM 2.1 mg/dL (1.8-2.4); POTASSIUM SERUM 4.1 mmol/L (3.5-5.1); SODIUM SERUM 143 mmol/L (136-145); TOTAL PROTEIN, SERUM 6.8 g/dL (6.4-8.2)
[2019-04-03 07:28] LABS: ALBUMIN 2.8 g/dL (3.4-5.0)
[2019-04-03 08:36] VITALS: BP 143/97
--- NOTE | 2019-04-03 08:59 | NUR ---
PT SITTING UP IN BED. NO ACUTE RESP DISTRESS NOTED. GIVEN PO MEDS. TOLERATED WELL. PT C/O FEELING ANXIOUS, MEDICATED PER EMAR. IV PATENT AND INFUSING TO LAC. NO REDNESS OR SWELLING NOTED. WILL CONTINUE TO MONITOR. CALL LIGHT IN REACH. BED IN LOWEST POSITION.
[2019-04-03 09:49] VITALS: BP 143/97
--- NOTE | 2019-04-03 09:51 | NUR ---
PT SITTING UP AT BEDSIDE. PT AWARE OF DISCHAGE. ALL QUESTIONS AND CONCERNS ADDRESSED. PT STATES WILL BE ABLE TO PICK HIM UP WITHIN AN HOUR. PT ASKING TO SHOWER BEFORE D/C HOME. WILL CONTINUE TO MONITOR.
--- NOTE | 2019-04-03 10:00 | NUR ---
PT SITTING UP IN BED. PROVIDED SHOWER SUPPLIES. PT STATES I'LL JUST WAIT FOR MY TO GET HERE TO SHOWER. INSTRUCTED PT TO USE CALL LIGHT WHEN IS HERE. WILL CONTINUE TO MONITOR. CALL LIGHT IN REACH. BED IN LOWEST POSITION.
--- NOTE | 2019-04-03 11:41 | NUR ---
PT SITTING UP IN BED. GIVEN DISCHARGE INSTRUCTIONS, AT BEDSIDE. PT ENCOURAGED TO STOP DRINKING ALCOHOL. PT ENCOURAGED TO RETURN TO ER IF ANY WORSENING SYMPTOMS OF SEIZURE, TREMORS, ANXIETY, SOB, FEVERS. PT VERBALIZED UNDERSTANDING. PT ENCOURAGED TO TAKE HOME MEDICATIONS PRESCRIBED. PT GIVEN PRESCRIPTION FOR [facility] PT ENCOURAGED TO TAKE MEDICATION Q6HRS NEEDED. PT URGED NOT TO CONSUME ALCOHOL WHILE TAKING MEDICATION. PT VERBALIZED UNDERSTANDING. OFFERED PT IF HE NEEDED ANY RESOURCES FOR ALCOHOL CESSATION. PT STATES "I ALREADY HAVE INFORMATION FROM REHABS AND RESOURCES. I WILL LOOK AT THEM WHEN I GET HOME." IV TO LAC, LH, AND RFA REMOVED CATHETER INTACT. NO REDNESS OR SWELLING NOTED. PT TAKEN OFF FLOOR VIA WHEELCHAIR BY COMMERCIAL MAINTENANCE TECHNICIAN. NO PROBLEMS ENCOUNTERED.
== END 2019-04-03 11:43 | disposition home or self-care (01) | DRG 133 ==
LOC: ED 16:39 → IC 19:54 → DU 04-02 18:21
PROVIDERS: Emergency Medicine; Internal Medicine Pulmonary Disease; ADMIT Internal Medicine Pulmonary Disease
PROC: 0BH17EZ Insertion of Endotracheal Airway into Trachea, Via Natural or Artificial Opening (ICD-10-PCS; 2019-03-29)
PROC: 5A1945Z Respiratory Ventilation, 24-96 Consecutive Hours (ICD-10-PCS; principal; 2019-03-30)
DX: J96.01 Acute respiratory failure with hypoxia (principal); I95.9 Hypotension, unspecified; F10.231 Alcohol dependence with withdrawal delirium; J96.02 Acute respiratory failure with hypercapnia; R44.1 Visual hallucinations; Y90.0 Blood alcohol level of less than 20 mg/100 ml; G47.33 Obstructive sleep apnea (adult) (pediatric); R41.0 Disorientation, unspecified; F41.8 Other specified anxiety disorders; Z23 Encounter for immunization
CPT/HCPCS: 36600; 90658; 94150; A4628; C9113; G0378; G0480; J0330; J1630; J1644; J2060; J2543; J2560; J2704; J3411; J3480; J3490; J7030; J7040; J7042; Q0092

== ENCOUNTER 2019-12-11 14:39 | Emergency (ER) | payer OTHER ==
[~2019-12-11] VITALS: Ht 175.3 cm; Wt 99.8 kg
[2019-12-11 14:47] VITALS: Ht 175.3 cm; Wt 99.8 kg
[2019-12-11 16:30] VITALS: BP 129/85
== END 2019-12-11 16:30 | disposition home or self-care (01) ==
LOC: ED 14:39
DX: S62.637A Displaced fracture of distal phalanx of left little finger, initial encounter for closed fracture (principal); F17.210 Nicotine dependence, cigarettes, uncomplicated; X58.XXXA Exposure to other specified factors, initial encounter; Y93.89 Activity, other specified; Y92.89 Other specified places as the place of occurrence of the external cause; Y99.8 Other external cause status
CPT/HCPCS: 99406; J2001

== ENCOUNTER 2019-12-13 08:17 | Emergency (ER) | payer OTHER ==
[~2019-12-13] VITALS: Ht 177.8 cm; Wt 100.7 kg
[2019-12-13 08:25] VITALS: Ht 177.8 cm; Wt 100.7 kg
[2019-12-13 09:21] VITALS: BP 125/79
== END 2019-12-13 09:21 | disposition home or self-care (01) ==
LOC: ED 08:17
DX: S61.217D Laceration without foreign body of left little finger without damage to nail, subsequent encounter (principal); F41.9 Anxiety disorder, unspecified; F10.10 Alcohol abuse, uncomplicated; Z76.0 Encounter for issue of repeat prescription; X58.XXXD Exposure to other specified factors, subsequent encounter

== ENCOUNTER 2019-12-14 16:22 | Emergency (ER) | payer OTHER | END 2019-12-14 17:24 | disposition left against medical advice (07) | LOC: ED 16:22 | DX: Z53.21 Procedure and treatment not carried out due to patient leaving prior to being seen by health care provider (principal) ==

== ENCOUNTER 2020-04-01 08:07 | Emergency (ER) | payer OTHER ==
[~2020-04-01] VITALS: Ht 175.3 cm; Wt 98.9 kg
[2020-04-01 08:19] VITALS: BP 158/101; Ht 175.3 cm; Wt 98.9 kg
== END 2020-04-01 08:45 | disposition home or self-care (01) ==
LOC: ED 08:07
DX: Z02.79 Encounter for issue of other medical certificate (principal)

== ENCOUNTER 2020-04-22 13:29 | Emergency (ER) | payer OTHER ==
[~2020-04-22] VITALS: Ht 177.8 cm; Wt 97.5 kg
[2020-04-22 13:44] VITALS: Ht 177.8 cm; Wt 97.5 kg
[2020-04-22] MEDS ORDERED: OXYCODON-ACETA1 EACH PO (15:37)
[2020-04-22 15:49] VITALS: BP 99/74
== END 2020-04-22 15:49 | disposition home or self-care (01) ==
LOC: ED 13:29
DX: S62.201A Unspecified fracture of first metacarpal bone, right hand, initial encounter for closed fracture (principal); W20.8XXA Other cause of strike by thrown, projected or falling object, initial encounter; Y93.89 Activity, other specified; Y92.89 Other specified places as the place of occurrence of the external cause; Y99.8 Other external cause status